=== PATIENT | female | born 2000 | race Caucasian/White ===

== ENCOUNTER 2022-08-07 20:48 | Emergency (ER) | payer OTHER ==
[~2022-08-07] VITALS: Ht 154.9 cm; Wt 54.4 kg
[2022-08-07 20:49] VITALS: BP 157/99
[2022-08-07] MEDS ORDERED: OLOPATADINE 0.1% OPHTH SOL 5ML(PATANOL) OU ONE (22:00)
== END 2022-08-07 22:27 | disposition home or self-care (01) ==
LOC: M ED 20:48
DX: H10.45 Other chronic allergic conjunctivitis (principal); F12.90 Cannabis use, unspecified, uncomplicated; F17.200 Nicotine dependence, unspecified, uncomplicated